=== PATIENT | female | born 1950 | race Caucasian/White ===

== ENCOUNTER 2019-03-28 10:53 | Day surgery (SDC) | payer MEDICARE, OTHER, SELFPAY ==
[2019-03-28 11:12] VITALS: BP 142/71; PULSE 58; RESP 16; TEMP 37; O2SAT 96; BMI 51.2
[2019-03-28] MEDS: Cyclopentolate 1% 2 ML Bottle 1 DRP OPHTHALMIC ×3 (11:25→11:36)
[2019-03-28] MEDS: Tetracaine 0.5% Ophthalmic Bottle 1 DRP OP (12:30)
[2019-03-28] MEDS: Povidone Iodine 30 ML Opthalmic Sol 1 DRP (12:50)
--- NOTE | 2019-03-28 13:10 | PCM.DC.CATCL ---
Allergies/Adverse Reactions: Allergies No Known Allergies Allergy (Verified 03/26/19 08:29) Medications to take at Discharge Aspirin 325 mg PO DAILY@0800 03/26/19 Docusate Sodium [Colace] 100 mg PO DAILY 03/26/19 Fexofenadine HCl [Brianna Allergy] 180 mg PO DAILY 03/26/19 Flecainide Acetate 50 mg PO BID 03/26/19 L.acidoph,Paracasei, B.lactis [Probiotic] 1 ea PO DAILY 03/26/19 Omeprazole 40 mg PO DAILY 03/26/19 Cataract Instructions: -Take a pain reliever such as Tylenol, Aspirin or Ibuprofen if needed for eye aching or pain. If this is not enough relief for you pain, call your doctor (or the doctor lead sales consultant), even at night. -You are scheduled for a follow-up appointment at [facility] the day after surgery. You should have someone drive you. -Transient pain and irritation are due to the incision that was made at the time of surgery and do not indicate any trouble. Our office numbers are . If there is no answer, or if it is after our normal business hours, call your surgeon. My home phone number is: Dr. June Hassan INSTRUCTIONS FOLLOWING TOPICAL ANESTHETIC CATARACT SURGERY Protect operated eye with glasses or metal shield at all times. Instill one drop of Polytrim (or other antibiotic drop), one drop of Prednisolone and one drop of Acular in the operated eye four times a day (breakfast, lunch, dinner, and bedtime) until the doctor tells you to quit or decrease them. Wait 3-5 minutes between each drop. Please begin these immediately upon arriving at home. if your surgery is in t he afternoon, try to use the drops at least three more times the day of surgery and again the following morning before your appointment. INSTRUCTIONS FOLLOWING RETROBULBAR CATARACT SURGERY Keep the eye patch and metal shield on until you see your surgeon the day after surgery - these will be removed in the office that day. Do not drive while the patch is on your eye. You will be instructed about the use of drops for the operated eye at that visit. Primary Care Physician: Nitin Acosta MD [Primary Care Provider] -
--- NOTE | 2019-03-28 13:11 | PCM.OPRPT ---
Report of Operation Date of Procedure: 03/28/19 Pre-Operative Diagnosis: cataract right eye Post-Operative Diagnosis: same Surgery/Procedure Performed:: PEM IOL OD Description of Surgical Findings:: cataract right eye Type of Anesthesia:: MAC and Topical Anesth Estimated Blood Loss (mL): none Description of Procedure: Indications for Procedure: This is a 68 yo female with history of worsening vision in the right eye secondary to cataract. After discussion of risks, benefits, alternatives to cataract surgery, the patient agreed to proceed. Description of Procedure: The patient was brought to the operating room where a time out was performed prior to the start of the procedure. Anesthesia team induced light sedation, the eye was prepped and draped in the usual sterile fashion for eye surgery. A jacinto blade was used to create a paracentesis incision at the limbus. Preservative free lidocaine, followed by viscoat was instilled into the anterior chamber. A keratome was used to create a clear corneal biplanar incision at the temporal limbus. A cystotome was used to begin the capsulorhexis and completed in a continuous curvilenear fashion using forceps. BSS on a nettles cannula was hydrated beneath the capsule until the capsule was freely mobile in the capsular bag. Phacoemulsification was used to remove the lens in a divide and conquer technique. Irrigation and aspiration was used to remove the remaining cortical material. The capsular bag was inflated with provisc and a tecnis PCBOO 23.0 diopter lens was placed into the bag and adjusted using a mervat hook. The remaining viscoelastic material was removed. The incisions were hydrated and noted to be watertight with a weck cell sponge. The patient was taken to the recovery room in a stable condition with instructions to follow up in the clinic the following day. - Complications none - Admit VTE Documentation VTE Pharm Prophylaxis ordered?: No Reason prophylaxis not ordered:: Procedure Not Indicated - patient can ambulate
[2019-03-28 13:13] VITALS: BP 133/72; BP 142/71; PULSE 55; RESP 16; TEMP 36.9; O2SAT 95
[2019-03-28 13:20] VITALS: BP 132/67; BP 142/71; PULSE 56; RESP 16; O2SAT 96
[2019-03-28 13:25] VITALS: BP 127/71; BP 142/71; PULSE 54; RESP 16; O2SAT 94
[2019-03-28 13:30] VITALS: BP 126/75; BP 142/71; PULSE 54; RESP 16; TEMP 36.6; O2SAT 94
[2019-03-28 13:52] VITALS: BP 142/71
== END 2019-03-28 14:04 | disposition home or self-care (01) ==
LOC: SDC 10:54 → AC 10:56
PROVIDERS: Family Provider Family Medicine; PCP Family Medicine; Referring Provider Ophthalmology; Visit Provider Ophthalmology
PROC: (CPT 66984; principal; 2019-03-28 12:20)
DX: H25.813 Combined forms of age-related cataract, bilateral (principal); H35.3131 Nonexudative age-related macular degeneration, bilateral, early dry stage; H43.812 Vitreous degeneration, left eye; H04.123 Dry eye syndrome of bilateral lacrimal glands; I48.91 Unspecified atrial fibrillation; I10 Essential (primary) hypertension; K21.9 Gastro-esophageal reflux disease without esophagitis; F32.9 Major depressive disorder, single episode, unspecified; F41.9 Anxiety disorder, unspecified; Z79.899 Other long term (current) drug therapy
CPT/HCPCS: 66984; J2405

== ENCOUNTER 2019-04-11 11:56 | Day surgery (SDC) | payer MEDICARE, OTHER, SELFPAY ==
[2019-04-11 12:41] VITALS: BP 145/87; PULSE 58; RESP 16; TEMP 36.6; O2SAT 95; BMI 49.9
[2019-04-11] MEDS: Povidone Iodine 30 ML Opthalmic Sol 1 DRP (13:50)
[2019-04-11] MEDS: Tetracaine 0.5% Ophthalmic Bottle 1 DRP OP (13:50)
[2019-04-11 14:11] VITALS: BP 130/70; BP 145/87; PULSE 55; RESP 16; TEMP 36.2; O2SAT 97
[2019-04-11 14:20] VITALS: BP 125/74; BP 145/87; PULSE 61; RESP 16; O2SAT 94
[2019-04-11 14:24] VITALS: BP 124/69; BP 145/87; PULSE 50; RESP 16; O2SAT 96
[2019-04-11 14:26] VITALS: BP 119/76; BP 145/87; PULSE 56; RESP 16; TEMP 36.1; O2SAT 94
--- NOTE | 2019-04-11 14:49 | PCM.DC.CATCL ---
Allergies/Adverse Reactions: Allergies No Known Allergies Allergy (Verified 03/26/19 08:29) Medications to take at Discharge Aspirin 325 mg PO DAILY@0800 03/26/19 Docusate Sodium [Colace] 100 mg PO DAILY 03/26/19 Fexofenadine HCl [Brianna Allergy] 180 mg PO DAILY 03/26/19 Flecainide Acetate 50 mg PO BID 03/26/19 L.acidoph,Paracasei, B.lactis [Probiotic] 1 ea PO DAILY 03/26/19 Omeprazole 40 mg PO DAILY 03/26/19 Cataract Instructions: -Take a pain reliever such as Tylenol, Aspirin or Ibuprofen if needed for eye aching or pain. If this is not enough relief for you pain, call your doctor (or the doctor recruiting operations consultant), even at night. -You are scheduled for a follow-up appointment at [facility] the day after surgery. You should have someone drive you. -Transient pain and irritation are due to the incision that was made at the time of surgery and do not indicate any trouble. Our office numbers are . If there is no answer, or if it is after our normal business hours, call your surgeon. My home phone number is: Dr. June Hassan INSTRUCTIONS FOLLOWING TOPICAL ANESTHETIC CATARACT SURGERY Protect operated eye with glasses or metal shield at all times. Instill one drop of Polytrim (or other antibiotic drop), one drop of Prednisolone and one drop of Acular in the operated eye four times a day (breakfast, lunch, dinner, and bedtime) until the doctor tells you to quit or decrease them. Wait 3-5 minutes between each drop. Please begin these immediately upon arriving at home. if your surgery is in t he afternoon, try to use the drops at least three more times the day of surgery and again the following morning before your appointment. INSTRUCTIONS FOLLOWING RETROBULBAR CATARACT SURGERY Keep the eye patch and metal shield on until you see your surgeon the day after surgery - these will be removed in the office that day. Do not drive while the patch is on your eye. You will be instructed about the use of drops for the operated eye at that visit. Primary Care Physician: Nitin Acosta MD [Primary Care Provider] -
--- NOTE | 2019-04-11 15:01 | PCM.OPRPT ---
Report of Operation Date of Procedure: 04/11/19 Pre-Operative Diagnosis: Cataract Left Eye Post-Operative Diagnosis: same Surgery/Procedure Performed:: PEM IOL OS-toric lens Description of Surgical Findings:: Indications for procedure: 68 yo female with history of worsening vision in the left eye secondary to cataract. After discussion of risks, benefits, alternatives of surgery, the patient agreed to proceed. Description of procedure: The patient was brought to the operating room where a time out was performed prior to the start of the procedure. The patients eye was marked at the 0-180 degree axis in the upright position with a bubble level marker for placement of a toric lens. The eye was prepped and draped in the usual sterile fashion for eye surgery. A jacinto blade was used to make a paracentesis incision. Preservative free lidocaine followed by viscoat was instilled into the anterior chamber. A keratome was used to create a clear corneal biplanar incision at the temporal limbus. A cystotome was used to begin the capsulorhexis and completed in a continuous curvilenear fashion using the capsulorhexis forceps. BSS on a nettles cannula was used to hydrate beneath the lens capsule until it was noted to be freely mobile in the capsular bag. The lens was removed in a divide and conquer technique. The remaining cortex was removed using irrigation and aspiration. The capsular bag was intact. Provisc was used to inflate the capsular bag and a haas ring and marker were used to cirilo the 98 degree axis. A jake [id number] 22.0 diopter lens was placed into the capsular bag and adjusted using a mervat hook until the lens was aligned with the 98 degree axis. The remaining viscoelastic material was removed. The wounds were hydrated and noted to be watertight at the conclusion of the case with a weck cell sponge. lens position was confirmed. The patient was taken to the recovery room in a stable condition to follow up in the clinic the following day. Type of Anesthesia:: MAC and Topical Anesth Estimated Blood Loss (mL): none - Complications none - Admit VTE Documentation VTE Pharm Prophylaxis ordered?: No Reason prophylaxis not ordered:: Procedure Not Indicated - patient can ambulate
[2019-04-11 15:08] VITALS: BP 145/87
== END 2019-04-11 15:09 | disposition home or self-care (01) ==
LOC: SDC 11:57 → AC 12:03
PROVIDERS: Family Provider Family Medicine; PCP Family Medicine; Referring Provider Ophthalmology; Visit Provider Ophthalmology
DX: H25.812 Combined forms of age-related cataract, left eye (principal); I48.91 Unspecified atrial fibrillation; I10 Essential (primary) hypertension; K21.9 Gastro-esophageal reflux disease without esophagitis; F32.9 Major depressive disorder, single episode, unspecified; F41.9 Anxiety disorder, unspecified; Z79.82 Long term (current) use of aspirin; Z79.899 Other long term (current) drug therapy; Z98.41 Cataract extraction status, right eye; Z78.0 Asymptomatic menopausal state
CPT/HCPCS: 66984; A4216